=== PATIENT | male | born 1975 | race Hispanic/Latino ===

== ENCOUNTER 2017-04-25 19:18 | Emergency (ER) | payer BC, OTHER ==
--- NOTE | 2017-04-25 20:01 | RAD ---
FOUR VIEWS OF THE LEFT KNEE: 04/25/17 INDICATION: Left knee injury. Concern for knee dislocation while playing basketball. FINDINGS: There is a fragmented ossific body seen anterolateral to the proximal tibia with a suspected harvest site from the inferior aspect of the patella. There is mild osteophytes affecting all major compart ments of the left knee. There is soft tissue swelling overlying the anterior aspect of the left knee . There is mild joint capsular distention. IMPRESSION: Findings suspicious for avulsion injury involving the inferior aspect of the patella. This can be se en with patellar tendon injuries. Recommend correlation with the clinical exam if there is any abili ty for the patient to actively extend the knee as a patellar tendon disruption cannot be entirely ex cluded. This injury can also be seen with transient patellar dislocation. Followup MRI of the left k nee may be helpful additional characterization. POS: [facility]
[2017-04-25] MEDS ORDERED: HYDROcodone/Acetaminophen 10/325 mg Tablet ONE (21:01)
== END 2017-04-25 20:58 | disposition home or self-care (01) ==
LOC: ERS 19:18
DX: S76.112A Strain of left quadriceps muscle, fascia and tendon, initial encounter (principal); J45.909 Unspecified asthma, uncomplicated; M10.9 Gout, unspecified; X50.1XXA Overexertion from prolonged static or awkward postures, initial encounter; Y93.67 Activity, basketball

== ENCOUNTER 2017-04-30 17:20 | Outpatient (CLI) | payer OTHER ==
[2017-04-30 17:54] LABS: Hematocrit 40.6 % (42.0-52.0); Mean Platelet Volume 8.4 fL (7.4-10.4); Red Blood Cell (RBC) Count 4.47 mill/uL (4.70-6.10); White Blood Cell (WBC) Count 6.1 thou/uL (4.8-10.8)
[2017-04-30 18:12] LABS: Anion Gap 14 mmol/L (10-20); BUN (Urea Nitrogen) 15 mg/dL (8.9-20.6); Calc. Creatinine Clearance 0 mL/min (70-130); Calcium 9.8 mg/dL (7.8-10.44); Carbon Dioxide 25 mmol/L (22-29); Chloride 101 mmol/L (98-107); Estimated GFR-MDRD 88
== END 2017-04-30 17:21 | disposition home or self-care (01) ==
LOC: LABBT 17:20
PROVIDERS: ATTEND Orthopaedic Surgery
DX: Z01.818 Encounter for other preprocedural examination (principal); S76.112A Strain of left quadriceps muscle, fascia and tendon, initial encounter
CPT/HCPCS: 80048; 85027

== ENCOUNTER 2017-05-01 07:29 | Observation (INO) | payer OTHER ==
[2017-04-30 17:38] VITALS: BMI 33.9
[2017-05-01] MEDS ORDERED: Vancomycin HCl 1.5 GM in Sodium Chloride 0.9% 250 ML 300 ML IVPB SCH ×2 (08:30→21:00)
[2017-05-01] MEDS ORDERED: Midazolam HCl 2 mg/2 ml Vial ONE (09:16)
[2017-05-01] MEDS ORDERED: Fentanyl 100 MCG/2 ML VIAL ONE (09:16)
[2017-05-01] MEDS ORDERED: Lidocaine 1% (PF) 30 ML VIAL ONE (09:21)
[2017-05-01] MEDS ORDERED: Lidocaine 2% PF 10 ML AMP (For Epidural Use) ONE (10:16)
[2017-05-01] MEDS ORDERED: Dexamethasone 20 MG/5 ML VIAL ONE (10:16)
[2017-05-01] MEDS ORDERED: Ondansetron HCl/PF 4 MG/2 ML Vial ONE (10:16)
[2017-05-01] MEDS ORDERED: Propofol 200 MG/20 ML VIAL ONE (10:16)
[2017-05-01] MEDS ORDERED: Ketorolac Tromethamine 30 MG/ML VIAL ONE (10:16)
[2017-05-01] MEDS ORDERED: Ondansetron HCl/PF 4 MG/2 ML Vial IVP PRN ×2 (11:03→14:02)
[2017-05-01] MEDS ORDERED: Zolpidem Tartrate 5 MG TAB PO PRN (11:03)
[2017-05-01] MEDS ORDERED: Ropivacaine 0.2% 550 ML 550 ML NERVE BLCK SCH (11:03)
[2017-05-01] MEDS ORDERED: Promethazine HCl 25 MG/ML VIAL IM PRN ×2 (11:03→14:02)
[2017-05-01] MEDS ORDERED: HYDROcodone/Acetaminophen 10/325 mg Tablet PO PRN ×2 (11:03)
[2017-05-01] MEDS ORDERED: traMADol HCl 50 MG TAB PO PRN ×2 (11:03)
[2017-05-01] MEDS ORDERED: Fentanyl 100 MCG/2 ML VIAL IV PRN (11:04)
[2017-05-01] MEDS ORDERED: Milk Of Magnesia 30 ML UDCUP PO PRN (13:41)
[2017-05-01] MEDS ORDERED: Methocarbamol 500 MG TAB PO PRN (13:41)
[2017-05-01] MEDS ORDERED: Morphine Sulfate 2 MG/ML SYRINGE SLOW IVP PRN (13:41)
[2017-05-01] MEDS ORDERED: Bisacodyl 10 MG SUPP PR PRN (13:41)
[2017-05-01] MEDS ORDERED: HYDROcodone/Acetaminophen 7.5/325 mg Tablet PO PRN ×2 (13:41)
[2017-05-01] MEDS ORDERED: Acetaminophen 500 MG TAB PO PRN (13:41)
[2017-05-01] MEDS ORDERED: Promethazine HCl 25 MG/ML VIAL SLOW IVP PRN (14:02)
[2017-05-01] MEDS: Ketorolac Tromethamine 30 MG/ML VIAL IVP SCH ×2 (18:06)
[2017-05-01] MEDS: Dextrose 5 %-0.45 % NaCl 1,000 ML IV SCH (20:20)
[2017-05-01] MEDS: Famotidine 20 MG TAB PO SCH (20:23)
--- NOTE | 2017-05-02 00:22 | OP ---
DATE OF SERVICE: 05/01/2017 PREOPERATIVE DIAGNOSES: 1. Left knee intratendinous patellar tendon rupture. 2. Medial and lateral meniscal tears. 3. Anterior cruciate ligament tear off the femur. 4. Disruption of deep medial collateral ligament as well as the posterior medial corner of the knee. POSTOPERATIVE DIAGNOSES: 1. Left knee intratendinous patellar tendon rupture. 2. Medial and lateral meniscal tears. 3. Anterior cruciate ligament tear off the femur. 4. Disruption of deep medial collateral ligament as well as the posterior medial corner of the knee. PROCEDURES PERFORMED: 1. Left knee open medial meniscus repair. 2. Primary repair of patellar tendon rupture. 3. Primary repair of medial collateral ligament rupture. 4. Primary repair of posteromedial corner. FINAL DIAGNOSIS: Placement of internal brace x3 one for the medial collateral ligament and 2 for the patellar tendon. SURGEON: Jose Manuel Dalton M.D. FACTORY EXPERT: Amadou Smalls PA-C. BLOOD LOSS: 150-200 mL ANESTHESIA: The patient had general anesthetic, had preoperative blocks. IMPLANTS: There were multiple sutures which were Cottony Dacron. We used a 3.5 suture anchor, we used six BioComposite SwiveLock screws with associated sutures. CONDITION: He did go to the recovery room in a stable condition. INDICATIONS: This is a 41-year-old male who approximately a week ago injured his left knee playing basketball. At this time, he was found to have a significant traumatic injury to the left knee with multiple ligaments injured and at this time was taken for primary repair of this. DESCRIPTION OF PROCEDURE: After all appropriate consent forms were explained and signed, the patient was taken back to the operating room and at this time was given general anesthetic. Once the level of anesthesia was appropriate, the tourniquet was placed on the left thigh and leg was then prepped and draped in the standard surgical fashion. Our exam under anesthesia prior to prepping the patient showed him to have absolutely no medial stability whatsoever and the large palpable gap in the front part of the knee. Difficult to ascertain about the ACL, but the PCL was felt to be intact. Once the limb had been prepped and draped, we exsanguinated the limb and took it up to 250 mmHg. A large midline incision was made with a 10 blade down through skin. The Bovie was used to coagulate any brisk venous bleeding. We then took large skin flaps lateral and medial to be able to visualize the patella, the patellar tendon, the tibial tubercle, and the medial aspect of the knee. At this time, multiple fascial defects were noted as soon as we went through the superficial fascia and joint fluid which was bloody was evacuated. We then started to piece together our knee. First measure of order was to evaluate the patellar tendon and was found to have 2 like surfaces, one attached to the patella, one attached to the tibial tubercle. We then ran 4 tiny Dacrons, 2 through the inferior portion and 2 through the superior portion and [place] fashion starting at the disruption edge, going proximal and then coming back down for the proximal portion just starting at the disruption edge going distal and then coming back proximal to the distal portion. Once all the sutures had been placed, we felt that we would be able to primarily repair the patellar tendon. We would then back this up with an internal brace on either side of the tendon. At this time, we then turned our attention to the disruption of the medial capsule and the medial knee. The capsule disrupted and pulled off a piece of bone off the proximal tibia. Small anchor was placed into this for later repair at the end of the case. We were able to directly visualize our ACL And in spite of looking to be torn on its femoral insertion. It did appear to be taut here under direct visualization. PCL appeared to be intact. Cartilage surfaces were in good condition; however, it was obvious that the patient had gout as there were multiple crystalline surface changes. Fat pad was left alone at this time, as we felt that it would help of vascularity of the tissues. We then went medially and we found our hamstring tendons pulled these out of the way and we were able to incise down through layer #1 and then layer # 2 and the deep layer were able to find our medial structures. The deep portion of the MCL was found still be attached to the tibia, but it pulled off of the femoral side with a sleeve of tissue leaving a bare area of bone. This was visualized nicely here. Prior to placing this back, we rotated our knee, so we had access to the posteromedial corner. The meniscus itself was found to have a tear at the meniscal capsular junction, multiple #1 Ethibond sutures were placed to close this down. We then placed some sutures in our posteromedial capsule and tied these down. We then used a SwiveLock right of the pull off portion on the femur, drilled, tapped and placed a SwiveLock in a standard fashion. We then used the associated suture to run this up and down our deep MCL and we were able to use this to tie the MCL and place into its origin. Once this was done, our tapes would be used to back this up in internal brace fashion. We then reaped posterior medial tissue to the MCL and from here outwards to stabilize the lateral side of the knee. At 90 degrees of flexion, we then found the tibial insertion of the MCL and drilled, tapped and placed our second portion for the internal brace in this position. The sutures were taut at the 90 degrees and put through range of motion or lax in full extension and taut again at 90 degrees. We then tightened this down and this finished our MCL repair. At this time, we went back anteriorly. We drilled and tapped medial and lateral to the patellar tendon insertion on the patella and placed our anchors. The tapes were then be used to augment and protect our repair by using these in internal brace fashion. At this time, the knee was brought in to approximately 45-50 degrees of flexion. We tied all of our primary sutures in the middle, bringing patellar tendon into direct contact. We then drilled, tapped and placed our SwiveLock medial and lateral to the tibial tubercle. Once the tapes have been placed, our internal brace had been fashioned for the knee and we were able to easily bend this to 90 degrees with no gapping found on the primary repair and good tension on our brace and when we went to extension, the internal brace obviously was lax. At this time, we then repaired our medial capsule with a piece of bone directly to the tibia using the sutures from the anchor. We then placed multiple large Vicryl sutures to close our capsule and retinacular layer both lateral as well as medial. At this time, we placed a moist Ray-Sarah sponges into the wound, let the tourniquet down. We then coagulate any brisk venous bleeding. We thoroughly irrigated and dried. We did test our medial repair, found to be stable. We again was able to easily flex up the knee to 90 without any gapping and at this time, we tacked down our skin flaps to the fascia underneath so as to not get any large hematoma followed by placing some #2-0 Vicryl, running a 2-0 Stratafix and using surgical maria r to close the skin. At this time, a bulky sterile dressing was applied as well as a PolarCare unit and a hinge range of motion brace locked at 0. Demario was then awakened, taken to the recovery room in stable condition. All counts were correct at the end of the case. He did receive preoperative IV antibiotics. JORJE
[2017-05-02] MEDS: Ketorolac Tromethamine 30 MG/ML VIAL IVP SCH ×3 (00:40→12:50)
[2017-05-02] MEDS: Dextrose 5 %-0.45 % NaCl 1,000 ML IV SCH (00:41)
[2017-05-02] MEDS ORDERED: Allopurinol 300 MG TAB PO SCH (09:00)
[2017-05-02] MEDS ORDERED: Enoxaparin Sodium 40 MG/0.4 ML SYRINGE SC SCH (09:00)
[2017-05-02] MEDS ORDERED: Aspirin 325 mg Enteric Coated Tablet PO SCH (09:00)
[2017-05-02] MEDS: Famotidine 20 MG TAB PO SCH (09:24)
[2017-05-02 14:02] VITALS: BP 141/89; TEMP 98.6
== END 2017-05-02 15:25 | disposition home or self-care (01) ==
LOC: SDC 07:29 → SURG A 13:54
PROVIDERS: ADMIT Orthopaedic Surgery; ATTEND Orthopaedic Surgery
PROC: 0SBD0ZZ Excision of Left Knee Joint, Open Approach (ICD-10-PCS; principal; 2017-05-02)
PROC: 0MQP0ZZ Repair Left Knee Bursa and Ligament, Open Approach (ICD-10-PCS; 2017-05-02)
PROC: 0MQP0ZZ Repair Left Knee Bursa and Ligament, Open Approach (ICD-10-PCS; 2017-05-02)
DX: M23.92 Unspecified internal derangement of left knee (principal)
CPT/HCPCS: 93005; 93010; 96372; 96374; 96375; 96376; A4306; C1713; G0378; G8978-GP-CK; G8979-GP-CK; G8980-GP-CK; J1100; J1170; J1650; J1885; J2001; J2250; J2405; J2704; J2795; J3010; J3370; J7050

== ENCOUNTER 2018-03-22 18:00 | Outpatient (CLI) | payer OTHER | END 2018-03-22 18:01 | disposition home or self-care (01) | LOC: SLEEPLAB 18:00 | PROVIDERS: ATTEND Family Medicine | DX: G47.33 Obstructive sleep apnea (adult) (pediatric) (principal); G47.00 Insomnia, unspecified; E66.9 Obesity, unspecified; K21.9 Gastro-esophageal reflux disease without esophagitis; G47.31 Primary central sleep apnea; Z68.35 Body mass index [BMI] 35.0-35.9, adult | CPT/HCPCS: 95806 ==

== ENCOUNTER 2018-06-14 20:30 | Outpatient (CLI) | payer OTHER | END 2018-06-14 20:31 | disposition home or self-care (01) | LOC: SLEEPLAB 20:30 | PROVIDERS: ATTEND Family Medicine | DX: G47.33 Obstructive sleep apnea (adult) (pediatric) (principal); R09.89 Other specified symptoms and signs involving the circulatory and respiratory systems; G47.00 Insomnia, unspecified; K21.9 Gastro-esophageal reflux disease without esophagitis; R06.83 Snoring; G47.10 Hypersomnia, unspecified; E66.9 Obesity, unspecified; Z68.35 Body mass index [BMI] 35.0-35.9, adult | CPT/HCPCS: 95811 ==

== ENCOUNTER 2021-09-09 08:41 | Outpatient (CLI) | payer BC | END 2021-09-09 08:42 | disposition home or self-care (01) | LOC: CT 08:41 | PROVIDERS: ATTEND Family Medicine | DX: R10.9 Unspecified abdominal pain (principal) | CPT/HCPCS: 74176 ==